=== PATIENT | male | born 1990 | race Caucasian/White ===

== ENCOUNTER 2022-09-03 22:25 | Emergency (ER) | payer SELFPAY ==
[2022-09-03] MEDS ORDERED: LORazepam 2 MG/ML SYR.(CARPUJECT) ONE (22:37)
[2022-09-03 22:42] LABS: #Lymphocytes 2.8 thou/uL (1.20-3.40); #Monocytes 0.4 thou/uL (0.11-0.59); #Neutrophils 3.6 thou/uL (1.40-6.50); %Basophils 0.2 % (0.0-1.0); %Eosinophils 0.3 % (0.0-10.0); %Lymphocytes 41.2 % (21.0-51.0); %Monocytes 5.5 % (0.0-10.0); %Neutrophils 52.7 % (42.0-75.0); Hemoglobin 13.1 g/dL (14.0-18.0); Mean Corpuscular HGB CONC 33.4 g/dL (32.0-36.0); Mean Corpuscular Hemoglobin 30.9 pg (27.0-31.0); Mean Corpuscular Volume 92.6 fl (78.0-98.0); Mean Platelet Volume 7.9 fL (7.4-10.4); Platelet Count 265 10x3/uL (130-400); RBC Distribution Width 11.7 % (11.5-14.5); Red Blood Cell (RBC) Count 4.26 mill/uL (4.70-6.10); White Blood Cell (WBC) Count 6.9 10x3/uL (4.8-10.8)
[2022-09-03] MEDS ORDERED: CEFAZOLIN 2 GM VIAL ONE (22:45)
[2022-09-03] MEDS ORDERED: Boostrix 0.5 ML (Tdap) VIAL (>/=7 yrs of age) ONE (22:45)
[2022-09-03] MEDS ORDERED: Lidocaine 1% w/Epinephrine 1:100K 20 ML VIAL ONE (22:49)
[2022-09-03 22:53] LABS: PTT 23.2 sec (22.9-36.1); Prothrombin Time 13.8 sec (12.0-14.7)
[2022-09-03 23:03] LABS: Acetaminophen Less than 10.0 mcg/mL (10.0-30.0); Salicylate Less than 8.0 mg/dL (15.0-30.0)
[2022-09-03 23:05] LABS: ALT (SGPT) 11 U/L (8-55); AST (SGOT) 18 U/L (5-34); Albumin 3.9 g/dL (3.5-5.0); Alkaline Phosphatase 82 U/L (40-110); Anion Gap 15 mmol/L (10-20); BUN (Urea Nitrogen) 16 mg/dL (8.9-20.6); Bilirubin, Total 0.6 mg/dL (0.2-1.2); Calc. Creatinine Clearance 0 mL/min (70-130); Calcium 9.4 mg/dL (7.8-10.44); Carbon Dioxide 26 mmol/L (22-29); Chloride 102 mmol/L (98-107); Estimated GFR 98; Glucose 138 mg/dL (70-105); Potassium 3.3 mmol/L (3.5-5.1); Protein, Total 6.9 g/dL (6.0-8.3); Sodium 140 mmol/L (136-145)
[2022-09-03 23:58] LABS: Alcohol Less than 10 mg/dL (Less than 10)
== END 2022-09-04 00:36 | disposition home or self-care (01) ==
LOC: ERS 22:25
DX: S81.812A Laceration without foreign body, left lower leg, initial encounter (principal); Z23 Encounter for immunization; F17.210 Nicotine dependence, cigarettes, uncomplicated; W26.9XXA Contact with unspecified sharp object(s), initial encounter
CPT/HCPCS: 12034; 36415; 80053; 80176; 80307; 85025; 85610; 85730; 86850; 86900; 86901; 90471; 90715; 96365; 96375; J2060

== ENCOUNTER 2022-09-23 14:48 | Emergency (ER) | payer SELFPAY ==
[2022-09-23] MEDS ORDERED: Ketorolac Tromethamine 30 MG/ML VIAL ONE (20:08)
[2022-09-23] MEDS ORDERED: predniSONE 20 MG TAB ONE (20:08)
== END 2022-09-23 22:05 | disposition home or self-care (01) ==
LOC: ERS 14:48
DX: S80.12XA Contusion of left lower leg, initial encounter (principal); G62.9 Polyneuropathy, unspecified; L03.116 Cellulitis of left lower limb; X58.XXXA Exposure to other specified factors, initial encounter
CPT/HCPCS: 93923; 96372; J1885; J7512